=== PATIENT | male | born 1980 ===

== ENCOUNTER 2016-10-27 10:50 | Emergency (ER) | payer MEDICAID ==
[2016-10-27 10:57] VITALS: O2SAT 99
--- NOTE | 2016-10-27 11:58 | ED PDOC ---
HPI: Headache Time Seen by Provider: 10/27/16 11:20 Chief Complaint (Nursing): Headache Chief Complaint (Provider): headache History Per: Patient, Other (friend at bedside is translating in Czech for patient at his request) Additional Complaint(s): 36-year-old male presents to emergency Department with headache that has been ongoing for several months. Patient states that in May 2016 he was evaluated in [place] for headache and syncopal episode. MRI completed at that time shows aneurysm. Patient was advised to have MRSA but this test has not been done. He presents to ER today complaining of persistent headache. Patient states that headache is relieved by Advil. He denies any associated dizziness, vision changes or seizures. He rates current headache as a 9 out of 10. No meds taken for pain relief today. Past Medical History Reviewed: Historical Data, Nursing Documentation, Vital Signs Vital Signs: Last Vital Signs Temp 98.4 F 10/27/16 10:56 Pulse 63 10/27/16 10:56 Resp 18 10/27/16 10:56 BP 124/59 L 10/27/16 10:56 Pulse Ox 99 10/27/16 10:56 - Medical History PMH: No Chronic Diseases - Surgical History Surgical History: No Surg Hx - Family History Family History: States: No Known Family Hx - Living Arrangements Living Arrangements: With Family - Social History Current smoker - smoking cessation education provided: No Alcohol: None Drugs: Denies - Allergies Allergies/Adverse Reactions: Allergies Allergy/AdvReac Type Severity Reaction Status Date / Time No Known Allergies Allergy Verified 10/27/16 11:17 Review of Systems ROS Statement: Except As Marked, All Systems Reviewed And Found Negative Constitutional: Negative for: Fever Cardiovascular: Negative for: Chest Pain Gastrointestinal: Negative for: Nausea, Vomiting Neurological: Positive for: Other (headache for several months). Negative for: Dizziness Physical Exam - Reviewed Nursing Documentation Reviewed: Yes Vital Signs Reviewed: Yes - Physical Exam Appears: Positive for: Well, Non-toxic, No Acute Distress Head Exam: Positive for: ATRAUMATIC, NORMAL INSPECTION Skin: Positive for: Normal Color. Negative for: Rash Eye Exam: Positive for: Normal appearance, EOMI, PERRL ENT: Positive for: Normal ENT Inspection Neck: Positive for: Painless ROM Cardiovascular/Chest: Positive for: Regular Rate, Rhythm Respiratory: Positive for: Normal Breath Sounds Neurologic/Psych: Positive for: Alert, Oriented, Gait (steady). Negative for: Aphasia, Facial Droop - Laboratory Results Result Diagrams: 10/27/16 12:42 10/27/16 12:42 - ECG O2 Sat by Pulse Oximetry: 99 Pulse Ox Interpretation: Normal - Other Rad CT head X-Ray: Read By Radiologist X-Ray Interpretation: see below MRA brain X-Ray: Read By Radiologist X-Ray Interpretation: see below Medical Decision Making Medical Decision Makin36 year old with headache for 5 months Patient presents with MRI report from May 2016. Report indicates that patient has aneurysm. Report recommends MRA. Case was discussed in detail with Dr. Coronado as well as radiologist, Dr. Vu. CT head will be ordered for initial evaluation. Plan: CT head PO tylenol CBC CMP PT/PTT IV insertion CT: IMPRESSION: No acute intracranial hemorrhage. Asymmetry of the cavernous carotid arteries left-sided which is larger and somewhat focally more bulbous in appearance than the right-side. While this could represent a normal variation , exacerbated in appearance by a head tilt, the possibility of a cavernous carotid aneurysm not excluded. Followup MRA or CTA recommended for further evaluation if necessary. Questionable minimal chronic periventricular white matter ischemic changes. Findings suggest mild central volume loss Findings discussed with emergency room PA Harleen Turner On at approximately 01:15 p.m. with written down and read back verification. Above results were d/w Dr. Coronado. MRA without contrast of brain ordered as per above CT results. MRA: Impression: There appears to be a tiny approximately 1.35 x 1 mm outpouching arising from the posterior inferior margin of the distal cavernous carotid arteries/supraclinoid carotid artery junction that could represent a small infundibulum or tiny aneurysm. Marked asymmetry of the vertebral arteries left-side of which is quite small in caliber and effectively terminating in a left-sided posterior inferior cerebellar artery (PICA) as detailed. Above results were d/w neurosurgery diagnostic cardiac sonographer, Dr. Funez, who states that no acute intervention is necessary at this time. He recommends that patient follows up with a vascular surgeon. As per Dr. Funez, patient was instructed to follow up with [facility] for further evaluation. Patient was given copies of all labs and imaging reports. Disposition - Clinical Impression Clinical Impression: Headache - Patient ED Disposition Is Patient to be Admitted: No Counseled Patient/Family Regarding: Studies Performed, Diagnosis, Need For Followup - Disposition Referrals: [facility] [Provider Group] Disposition: Routine/Home Disposition Time: 16:33 Condition: STABLE Additional Instructions: Take Tylenol or Advil for pain as needed. Contact [facility] to obtain an appointment with their clinic or with neurosurgeon on staff at that hospital. Instructions: General Headache (ED) Print Language: PANAMANIAN Results - Lab Results Lab Results: 10/27/16 10/27/16 10/27/16 12:42 12:42 12:42 WBC 6.3 RBC 5.05 Hgb 14.3 Hct 43.4 MCV 85.9 MCH 28.4 MCHC 33.0 RDW 13.8 Plt Count 195 PT 10.4 INR 1.00 APTT 26.4 Sodium 139 Potassium 4.5 Chloride 102 Carbon Dioxide 25 Anion Gap 17 BUN 18 Creatinine 0.9 Est GFR ( Amer) > 60 Est GFR (Non-Af Amer) > 60 Random Glucose 92 Calcium 10.2 Total Bilirubin 0.5 AST 43 ALT 33 Alkaline Phosphatase 77 Total Protein 8.4 H Albumin 4.6 Globulin 3.8 Albumin/Globulin Ratio 1.2
[2016-10-27 12:55] LABS: HEMATOCRIT 43.4 % (35.0-51.0); MEAN CELL VOLUME 85.9 fl (80.0-94.0); MEAN CORPUSCULAR HEMOGLOBIN 28.4 pg (27.0-31.0); RED CELL DISTRIBUTION WIDTH 13.8 % (11.5-14.5); WHITE BLOOD COUNT 6.3 K/uL (4.8-10.8)
[2016-10-27 13:00] LABS: ALB/GLOB RATIO 1.2 (1.0-2.1); ALKALINE PHOSPHATASE 77 U/L (38-126); ALT/SGPT 33 U/L (21-72); AST/SGOT 43 U/L (17-59); BILIRUBIN,TOTAL 0.5 mg/dl (0.2-1.3); BLOOD UREA NITROGEN 18 mg/dl (9-20); CALCIUM 10.2 mg/dL (8.4-10.2); CARBON DIOXIDE 25 mmol/L (22-30); CHLORIDE 102 mmol/L (98-107); GFR AFRICAN-AMERICAN > 60; GLUCOSE,RANDOM 92 mg/dL (75-110); POTASSIUM 4.5 MMOL/L (3.6-5.0); SODIUM 139 mmol/l (132-148); TOTAL PROTEIN 8.4 G/DL (6.3-8.2)
[2016-10-27 13:20] LABS: PARTIAL THROMBOPLASTIN TIME 26.4 SECONDS (23.3-32.5)
--- NOTE | 2016-10-27 13:29 | CT ---
PROCEDURE: CT scan brain 10/27/2016. HISTORY: headache, h/o aneurysm COMPARISON: None available. TECHNIQUE: Axial computed tomography images were obtained through the head/brain without intravenous contrast. Radiation dose: Total exam DLP = 6 mGy-cm. This CT exam was performed using one or more of the following dose reduction techniques: Automated exposure control, adjustment of the mA and/or kV according to patient size, and/or use of iterative reconstruction technique. FINDINGS: HEMORRHAGE: No acute parenchymal, subarachnoid or extra-axial hemorrhage. BRAIN: There may be minimal chronic periventricular white matter ischemic changes. There is mild asymmetry of the cavernous carotid arteries left-side of which is focally larger in caliber - more bulbous than the right. While this could represent a normal variation, exacerbated in appearance by head tilt, the possibility of an aneurysm in this location not excluded. Consider followup MRA or CTA of the brain. VENTRICLES: There appears to be slight prominence of the ventricles suggesting mild central volume loss CALVARIUM: There are no acute calvarial fracture seen. PARANASAL SINUSES: Mild mucosal thickening noted within the ethmoid air complex. . MASTOID AIR CELLS: Unremarkable as visualized. No inflammatory changes. OTHER FINDINGS: None. IMPRESSION: No acute intracranial hemorrhage. Asymmetry of the cavernous carotid arteries left-sided which is larger and somewhat focally more bulbous in appearance than the right-side. While this could represent a normal variation, exacerbated in appearance by a head tilt, the possibility of a cavernous carotid aneurysm not excluded. Followup MRA or CTA recommended for further evaluation if necessary. Questionable minimal chronic periventricular white matter ischemic changes. Findings suggest mild central volume loss . Findings discussed with emergency room JACE Hubbard On at approximately 01:15 p.m. with written down and read back verification.
[2016-10-27] MEDS ORDERED: Sodium Chloride 0.9% 1,000 ML IV STA (13:54)
--- NOTE | 2016-10-27 16:04 | MRI ---
PROCEDURE: MRA of the brain 10/27/2016. HISTORY: History of aneurysm. COMPARISON: Comparison made with CT scan of the brain, MRI - MRA brain performed at outside institutions dated 05/18/2016, and 03/06/2016 respectively. Outside institution [facility] on which were brought in by the patient and reviewed compared to the study. TECHNIQUE: 3D [id number] MR angiography of the intracranial circulation performed. FINDINGS: The distal internal carotid arteries including the petrous, cavernous, supraclinoid arteries are widely patent. There appears to be a small focal outpouching along the posterior margin of the distal cavernous/supraclinoid carotid junction possibly at the origin of the posterior communicating artery that could represent a tiny infundibulum or aneurysm. This small focal outpouching measures approximately 1 x 1.35 mm. There is asymmetry of the left and right A1 segments, right side of which is much smaller in caliber than the left felt to represent a a an anatomic variant -mild hypoplasia The remaining visualized major branches of the [place] appear grossly unremarkable. The distal anterior and middle cerebral vasculature appears symmetric and also grossly unremarkable without evidence of additional suspicious infundibular and or aneurysms. . . No evidence of large vascular malformation. . There is marked asymmetry of the distal vertebral arteries, the left-side of which is very tiny in caliber and appears to terminate in a left-sided posterior inferior cerebellar artery (PICA). The basilar and posterior cerebral arteries are unremarkable. Impression: There appears to be a tiny approximately 1.35 x 1 mm outpouching arising from the posterior inferior margin of the distal cavernous carotid arteries/supraclinoid carotid artery junction that could represent a small infundibulum or tiny aneurysm. . Marked asymmetry of the vertebral arteries left-side of which is quite small in caliber and effectively terminating in a left-sided posterior inferior cerebellar artery (PICA) as detailed .
[2016-10-27 17:10] VITALS: BP 122/64; PULSE 62; RESP 16; TEMP 98.2
== END 2016-10-27 17:08 | disposition home or self-care (01) ==
LOC: H.ER 10:50
DX: R51 Headache (principal)